=== PATIENT | female | born 1940 | race Caucasian/White ===

== ENCOUNTER 2018-05-09 17:33 | Observation (INO) | payer OTHER ==
[~2018-05-09] VITALS: Ht 160 cm; Wt 85.3 kg
[2018-05-09 18:13] LABS: BASOPHILS ABSOLUTE AUTO 0.07 K/mm3 (0.00-0.23); BASOPHILS PERCENT AUTO 1 % (0-2); EOSINOPHILS ABSOLUTE AUTO 0.18 K/mm3 (0.00-0.68); EOSINOPHILS PERCENT AUTO 2 % (0-6); Hematocrit 42.8 % (33.0-51.0); Hemoglobin 13.5 g/dL (11.5-16.0); IMMATURE GRAN ABSOLUTE AUTO 0.02 K/mm3 (0.00-0.10); IMMATURE GRAN PERCENT AUTO 0 % (0-1); LYMPHOCYTES ABSOLUTE AUTO 2.06 K/mm3 (0.84-5.20); LYMPHOCYTES PERCENT AUTO 27 % (21-46); MONOCYTES ABSOLUTE AUTO 0.39 K/mm3 (0.16-1.47); MONOCYTES PERCENT AUTO 5 % (4-13); Mean Corpuscular HGB 28.6 pg (26.0-34.0); Mean Corpuscular HGB Conc 31.5 g/dL (31.5-36.5); Mean Corpuscular Volume 91 fL (80-100); Mean Platelet Volume 10.7 fL (9.1-12.4); NEUTROPHILS ABSOLUTE AUTO 4.81 K/mm3 (1.96-9.15); NEUTROPHILS PERCENT AUTO 64 % (41-73); Platelet Count 258 K/mm3 (150-400); RDW Coefficient Variation 12.8 % (11.7-14.2); RDW Standard Deviation 42.8 fL (35.1-46.3); Red Blood Cell Count 4.72 M/mm3 (3.80-5.20); White Blood Cell Count 7.53 K/mm3 (4.00-11.30)
[2018-05-09 18:36] LABS: Alanine Aminotransfer (ALT/SGP 23 U/L (12-78); Albumin, Blood 3.5 g/dL (3.4-5.0); Albumin/Globulin Ratio 0.9 (0.8-1.8); Alk Phos 90 U/L (50-136); Anion Gap 8 mmol/L (6-16); Aspartate Aminotrans (AST/SGOT 14 U/L (12-37); Bilirubin, Total 0.2 mg/dL (0.1-1.0); Blood Urea Nitrogen 20 mg/dL (8-24); Bun/Creatinine Ratio 33.3 (12.0-20.0); CO2, Blood 27 mmol/L (21-32); Chloride, Blood 104 mmol/L (98-108); Glomerular Filtration Rate >60 (60-); Glucose, Blood 196 mg/dL (70-99); Sodium, Blood 139 mmol/L (136-145); Total Protein, Blood 7.5 g/dL (6.4-8.2); Troponin I <0.015 ng/mL (0.000-0.040)
[2018-05-09] MEDS ORDERED: PREG100 PO (19:18)
[2018-05-09] MEDS ORDERED: SERT25 PO (19:18)
[2018-05-09] MEDS ORDERED: ALPR.25 PO (19:19)
[2018-05-09] MEDS ORDERED: Prilosec Otc20 MG PO (19:19)
[2018-05-09] MEDS ORDERED: NITR.4SL SL (19:20)
[2018-05-09] MEDS ORDERED: DOXE50 PO ×2 (19:20→19:21)
[2018-05-09] MEDS ORDERED: CODEINE (19:21)
[2018-05-09] MEDS ORDERED: ASPI81CH PO (19:21)
[2018-05-09] MEDS ORDERED: CYAN500 PO (19:22)
[2018-05-09] MEDS ORDERED: ESTR2 PO (19:22)
[2018-05-09] MEDS ORDERED: MELO7.5 PO (19:22)
[2018-05-09] MEDS ORDERED: ATORVASTATIN CA40 MG PO (19:22)
[2018-05-09] MEDS ORDERED: PROG100 PO (19:23)
[2018-05-09] MEDS ORDERED: VITAMIN D50000 UNIT PO (19:23)
[2018-05-09] MEDS ORDERED: METO50 PO (19:23)
--- NOTE | 2018-05-10 05:28 | NUR ---
SHIFT SUMMARY PT ARRIVED TO ROOM APPROX 2129. SAID IT WAS MORE OF CHEST PRESSURE THAN CHEST PAIN A 2/10 CONSTANT PRESSURE. 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 TROPS NEG. SHE WAS ABLE TO SLEEP OFF AND ON T/O NIGHT. INDEPENDENT TO BA. CALL LIGHT IN REACH WILL CONTINUE TO MONITOR HER
[2018-05-10] MEDS ORDERED: DICLO GEL1 EACH TOP (11:34)
--- NOTE | 2018-05-10 14:52 | NUR ---
PATIENT STATED AN UNDERSTANDING OF DISCHARGE MEDICATIONS AND INSTRUCTIONS. MEDICATIONS FAXED TO [facility] IN [place] PER PATIENT REQUEST. IV ACCESS REMOVED. ALL QUESTIONS ANSWERED. DISCHARGED TO HOME
== END 2018-05-10 12:45 | disposition home or self-care (01) ==
LOC: ER 17:33 → MEDS 17:34 → ENPENDDIS 05-10 10:00 → MEDS 05-10 12:45
PROVIDERS: Emergency Medicine; ADMIT Internal Medicine
DX: R07.89 Other chest pain (principal); I25.10 Atherosclerotic heart disease of native coronary artery without angina pectoris; I10 Essential (primary) hypertension; M79.7 Fibromyalgia; F32.9 Major depressive disorder, single episode, unspecified; F41.9 Anxiety disorder, unspecified; K21.9 Gastro-esophageal reflux disease without esophagitis; Z88.1 Allergy status to other antibiotic agents; Z88.8 Allergy status to other drugs, medicaments and biological substances; Z79.899 Other long term (current) drug therapy; Z95.1 Presence of aortocoronary bypass graft; Z79.01 Long term (current) use of anticoagulants
CPT/HCPCS: 36415; 71046; 80053; 83735; 84484; 85025; 93005; 93010; 99285-25; G0378

== ENCOUNTER → 2019-04-18 | Outpatient (CLI) | payer OTHER ==
[~2019-04-18] MED LIST: ALPR.25 PO; ASPI81CH PO; ATORVASTATIN CA40 MG PO; CODEINE; CYAN500 PO; DICLO GEL1 EACH TOP; DOXE50 PO; ESTR2 PO; MELO7.5 PO; METO50 PO; NITR.4SL SL; PREG100 PO; PROG100 PO; Prilosec Otc20 MG PO; SERT25 PO; VITAMIN D50000 UNIT PO
== END ==
LOC: LAB SHORT 14:33 → LAB 14:33
DX: H57.11 Ocular pain, right eye (principal)
CPT/HCPCS: 85651; 86140

== ENCOUNTER 2019-04-25 14:14 | Emergency (ER) | payer OTHER ==
[~2019-04-25] VITALS: Ht 160 cm; Wt 89.8 kg
== END 2019-04-25 16:28 | disposition home or self-care (01) ==
LOC: ER 14:14
DX: J06.9 Acute upper respiratory infection, unspecified (principal); I25.2 Old myocardial infarction; I10 Essential (primary) hypertension; F41.9 Anxiety disorder, unspecified; F32.9 Major depressive disorder, single episode, unspecified; Z79.899 Other long term (current) drug therapy
CPT/HCPCS: 71046; 99284-25

== ENCOUNTER → 2019-10-24 | Outpatient (CLI) | payer OTHER ==
[2019-10-24 13:37] LABS: Microalb/Creat Ratio UR, Rand 19.109 mg/g (0.000-30.000); Microalbumin, Random Urine 19.3 mg/L (0.000-20.000)
== END | disposition home or self-care (01) ==
LOC: LAB SHORT 09:46 → LAB 09:46
PROVIDERS: Family Medicine
DX: E11.65 Type 2 diabetes mellitus with hyperglycemia (principal)
CPT/HCPCS: 82043; 82570

== ENCOUNTER → 2020-06-08 | Outpatient (CLI) | payer OTHER | END | disposition home or self-care (01) | LOC: LAB 16:50 → LAB SHORT 16:50 | DX: R35.0 Frequency of micturition (principal) | CPT/HCPCS: 87086 ==

== ENCOUNTER → 2020-07-21 | Outpatient (CLI) | payer OTHER ==
[2020-07-23 18:06] LABS: DOPAMINE, URINE 166 ug/L (Undefined)
[2020-07-31 04:09] LABS: 5-HIAA, URINE 3.5 mg/L (Undefined)
== END | disposition home or self-care (01) ==
LOC: LAB SHORT 10:00 → PLD 10:00 → LAB FUT 06-18 14:45
PROVIDERS: Family Medicine
DX: R23.2 Flushing (principal)
CPT/HCPCS: 81050; 82384; 83497; 83835

== ENCOUNTER → 2021-04-19 | Outpatient (CLI) | payer OTHER ==
[2021-04-19 18:24] LABS: Creatinine, Urine Random 47.3 mg/dL (27.00-270.00)
[2021-04-19 18:27] LABS: Microalb/Creat Ratio UR, Rand 50.528 mg/g (0.000-30.000); Microalbumin, Random Urine 23.9 mg/L (0.000-20.000)
== END ==
LOC: LAB SHORT 15:45
PROVIDERS: Family Medicine
DX: E11.9 Type 2 diabetes mellitus without complications (principal)
CPT/HCPCS: 82043; 82570

== ENCOUNTER → 2021-11-26 | Outpatient (CLI) | payer OTHER | END | disposition home or self-care (01) | LOC: LAB 13:40 → LAB SHORT 13:40 | DX: N39.0 Urinary tract infection, site not specified (principal) | CPT/HCPCS: 87077; 87086; 87186 ==

== ENCOUNTER → 2022-06-03 | Outpatient (CLI) | payer OTHER ==
[2022-06-03 14:11] LABS: Appearance, Urine Clear (Clear); Bilirubin, Urine Neg (Neg); Blood, Urine 4+ (Neg); Color, Urine Yellow (P-Yellow); Glucose Qualitative, Urine Neg (Neg); Ketones, Urine Neg (Neg); Leukocyte Esterase, Urine Neg (Neg); Nitrite, Urine Neg (Neg); Protein, Urine Neg (Neg); Specific Gravity, Urine 1.015 (1.003-1.022); Urobilinogen, Urine NORM (Normal); pH, Urine 6.5 (5.0-8.0)
[2022-06-03 14:55] LABS: Red Blood Cells, Urine 25-50 /hpf (0-2)
[2022-06-03 14:56] LABS: Bacteria Few /hpf; Calcium Oxalate Crystals Few /hpf; Squamous Epithelial Cells Few /hpf (Few)
== END | disposition home or self-care (01) ==
LOC: LAB 09:00 → LAB SHORT 09:00
PROVIDERS: Family Medicine
DX: R10.9 Unspecified abdominal pain (principal)
CPT/HCPCS: 81001; 87086

== ENCOUNTER → 2022-06-23 | Outpatient (CLI) | payer OTHER | END | disposition home or self-care (01) | LOC: LAB SHORT 17:35 | DX: N39.0 Urinary tract infection, site not specified (principal); R30.0 Dysuria | CPT/HCPCS: 87086 ==

== ENCOUNTER → 2023-01-17 | Outpatient (CLI) | payer OTHER ==
[2023-01-18 09:51] LABS: Appearance, Urine Cloudy (Clear); Bilirubin, Urine Neg (Neg); Blood, Urine 5+ (Neg); Color, Urine Amber (P-Yellow); Glucose Qualitative, Urine Neg (Neg); Ketones, Urine Neg (Neg); Leukocyte Esterase, Urine 1+ (Neg); Nitrite, Urine Neg (Neg); Protein, Urine 3+ (Neg); Urobilinogen, Urine NORM (Normal)
[2023-01-18 10:03] LABS: Red Blood Cells, Urine TNTC /hpf (0-2)
[2023-01-18 10:06] LABS: Bacteria Many /hpf; Mucus Light (0-Heavy); Renal Epithelial Rare /hpf (0-Rare); Squamous Epithelial Cells Rare /hpf (Few)
== END ==
LOC: LAB SHORT 16:25 → LAB 16:25
PROVIDERS: Urology
DX: N39.0 Urinary tract infection, site not specified (principal)
CPT/HCPCS: 81001; 87086

== ENCOUNTER → 2024-05-20 | Outpatient (CLI) | payer OTHER ==
[2024-05-20 15:24] LABS: Source, Urine Clean Catch
[2024-05-20 16:12] LABS: Appearance, Urine Cloudy (Clear); Blood, Urine 4+ (Neg); Color, Urine Amber (P-Yellow); Glucose Qualitative, Urine Neg (Neg); Ketones, Urine Neg (Neg); Leukocyte Esterase, Urine 3+ (Neg); Nitrite, Urine Pos (Neg); Protein, Urine 2+ (Neg); Urobilinogen, Urine 3+ (Normal)
[2024-05-20 16:16] LABS: Bilirubin, Urine 3+ (Neg)
[2024-05-20 16:22] LABS: Bacteria Many /hpf; Squamous Epithelial Cells Mod /hpf (Few); White Blood Cells, Urine 50-100 /hpf (0-5)
== END | disposition home or self-care (01) ==
LOC: LAB 15:17 → LAB SHORT 15:17
PROVIDERS: Physician Assistant
DX: N39.0 Urinary tract infection, site not specified (principal)
CPT/HCPCS: 81001; 87077; 87086; 87186

== ENCOUNTER → 2024-08-06 | Outpatient (CLI) | payer OTHER ==
[2024-08-06 15:36] LABS: Source, Urine Clean Catch
[2024-08-06 16:50] LABS: Appearance, Urine Cloudy (Clear); Blood, Urine 5+ (Neg); Glucose Qualitative, Urine Neg (Neg); Ketones, Urine Neg (Neg); Leukocyte Esterase, Urine 3+ (Neg); Nitrite, Urine Pos (Neg); Protein, Urine 3+ (Neg); Urobilinogen, Urine 3+ (Normal)
[2024-08-06 16:57] LABS: Bilirubin, Urine 3+ (Neg); Color, Urine Amber (P-Yellow)
[2024-08-06 16:58] LABS: Red Blood Cells, Urine 50-100 /hpf (0-2); White Blood Cells, Urine TNTC /hpf (0-5)
[2024-08-06 16:59] LABS: Bacteria Many /hpf; Squamous Epithelial Cells Few /hpf (Few)
== END ==
LOC: LAB SHORT 10:19 → LAB 10:19
PROVIDERS: Nurse Practitioner Family
DX: R30.0 Dysuria (principal)
CPT/HCPCS: 81001; 87077; 87086; 87186

== ENCOUNTER → 2025-02-05 | Outpatient (CLI) | payer OTHER | END | disposition home or self-care (01) | LOC: LAB SHORT 17:14 → LAB 17:14 | DX: N39.0 Urinary tract infection, site not specified (principal) | CPT/HCPCS: 87086 ==